=== PATIENT | female | born 1990 | race Caucasian/White ===

== ENCOUNTER 2017-04-03 21:29 | Emergency (ER) | payer OTHER ==
[~2017-04-03] VITALS: Ht 154.9 cm; Wt 97.5 kg
[2017-04-03 22:00] VITALS: BP 128/91
== END 2017-04-03 23:56 | disposition left against medical advice (07) ==
LOC: ER 21:29
DX: J00 Acute nasopharyngitis [common cold] (principal); R05 Cough; Z53.21 Procedure and treatment not carried out due to patient leaving prior to being seen by health care provider